=== PATIENT | female | born 1950 | race Caucasian/White ===

== ENCOUNTER 2017-06-18 21:05 | Emergency (ER) | payer OTHER, MEDICARE ==
[~2017-06-18] VITALS: Ht 160 cm; Wt 61.2 kg
[2017-06-18] MEDS ORDERED: LIPITOR PO (21:15)
== END 2017-06-18 23:31 | disposition home or self-care (01) ==
LOC: CED 21:05
DX: T78.03XA Anaphylactic reaction due to other fish, initial encounter (principal); Z91.013 Allergy to seafood; Z79.899 Other long term (current) drug therapy
CPT/HCPCS: 36415; 96361; 96374; 96375; 99284; J1200; J2405; J2930